=== PATIENT | male | born 1980 | race Caucasian/White ===

== ENCOUNTER 2018-02-03 17:35 | Emergency (ER) | payer OTHER ==
[~2018-02-03 17:35] MED LIST: ALPR-429 PO; AMOX500T10 PO; ATOR10TA24 PO; CLAR-1 PO; MONT10TA PO; OMEP-125 PO; OMEP10SU PO; TOBOD OS
--- NOTE | 2018-02-03 17:38 | ER Report ---
History and Physical Time Seen By MD: 17:38 (MONA HOPPER MD) Time Seen By MD: 18:35 (KAREN GARRETT DO) HPI/ROS CHIEF COMPLAINT: Allergic reaction HISTORY OF PRESENT ILLNESS: Patient is a 37-year-old male here with difficulty breathing, difficulty swallowing, sensation is throat is closing. Symptoms started approximately 30 minutes prior to arrival after the patient was administered his maintenance allergy desensitization medications. Patient reports that he is allergic to environmental allergies and has been taking a course of injections for desensitization. Patient did use his epinephrine pen and remains hemodynamically stable at time of evaluation. Patient denies fevers , chills, recent illness, chest pain, abdominal pain, nausea, vomiting. REVIEW OF SYSTEMS: Constitutional: No fever, no chills. Eyes: + Injection ENT: Mild esophageal foreign body sensation Cardiovascular: No chest pain, no palpitations. Respiratory: No cough, + shortness of breath. Gastrointestinal: No abdominal pain, no vomiting. Genitourinary: No hematuria. Musculoskeletal: No back pain. Skin: No rashes. Neurological: No headache. (KAREN GARRETT DO) Allergies: Coded Allergies: No Known Drug Allergies (Verified , 11/30/08) Home Meds Active Scripts Prednisone (PREDNISONE) 20 Mg Tablet, 40 MG PO QDAY for 3 Days, #6 TAB Prov:KAREN GARRETT DO 02/03/18 Omeprazole (OMEPRAZOLE) 20 Mg Capsule.dr, 1 CAP PO BID, #60 CAP Prov:CARISSA COATES V DO 05/06/17 Reported Medications Epinephrine (EPINEPHRINE) 0.3 Mg/0.3 Ml Pen.injctr, 0.3 MG IM PRN 02/03/18 Alprazolam (XANAX) 0.5 Mg Tablet, 2 TAB PO HS Y for SLEEP, TAB 05/30/17 Atorvastatin Calcium (LIPITOR) 10 Mg Tablet, 1 TAB PO QDAY, TAB 05/30/17 Discontinued Reported Medications Montelukast Sodium (SINGULAIR) 10 Mg Tablet, 1 TAB PO QDAY, TAB 05/30/17 Hx Smoking: No Hx Substance Use Disorder: No Hx Alcohol Use: Yes (MONA HOPPER MD) Constitutional Vital Sign - Last 24 Hours 02/03/18 02/03/18 02/03/18 02/03/18 17:35 17:39 17:45 17:45 Temp 98.3 Pulse 100 99 Resp 20 16 B/P (MAP) 164/96 164/96 (118) Pulse Ox 92 90 O2 Delivery Room Air Room Air 02/03/18 02/03/18 02/03/18 02/03/18 17:50 18:00 18:02 18:05 Pulse 92 95 96 Resp 14 B/P (MAP) 148/87 (107) Pulse Ox 98 89 02/03/18 02/03/18 02/03/18 02/03/18 18:20 18:25 18:30 18:40 Pulse 100 96 93 B/P (MAP) 136/82 (100) Pulse Ox 89 88 88 02/03/18 02/03/18 18:55 19:00 Pulse 95 B/P (MAP) 130/82 (98) Pulse Ox 88 Intake and Output 02/03/18 02/03/18 02/04/18 15:00 23:00 07:00 Intake Total 50 ml Balance 50 ml (GARRETTKAREN S DO) Physical Exam General Appearance: The patient is alert, has no immediate need for airway protection and no signs of toxicity. No acute distress Eyes: Pupils equal and round no pallor or injection. ENT, Mouth: Mucous membranes are moist. Respiratory: There are no retractions, lungs are clear to auscultation. Cardiovascular: Regular rate and rhythm. Gastrointestinal: Abdomen is soft and non tender, no masses, bowel sounds normal. Neurological: No focal neurological deficits. Skin: Warm and dry, mild erythema of the face and neck Musculoskeletal: Neck is supple non tender. Extremities are nontender, nonswollen and have full range of motion. DIFFERENTIAL DIAGNOSIS: After history and physical exam differential diagnosis was considered for medication reaction, allergic reaction, anaphylaxis (GARRETT,KAREN S DO) Medical Decision Making ED Course/Re-evaluation ED Course Patient is a 37-year-old male here with complaints of shortness breath, difficult swallowing after receiving allergy desensitization shots approximately half hour prior to arrival. Patient was administered his epinephrine pen and was given Benadryl, Pepcid, nebulizer treatment, methylprednisolone with significant relief of symptoms. Patient was well- appearing at time of evaluation by myself. I educated the patient on concerns for recurrent allergic reaction. Patient does have another epinephrine pen available in case he experiences rebound symptoms. Patient was placed on 3 subsequent days of prednisone since patient is likely to have continued exposure to the injection for an unknown period of time. Patient voiced understanding of plan. Decision to Disposition Date: Feb 03, 2018 Decision to Disposition Time: 19:04 (KAREN GARRETT DO) Depart Departure Latest Vital Signs Vital Signs Date Time Temp Pulse Resp B/P (MAP) Pulse Ox O2 Delivery O2 Flow Rate FiO2 02/03/18 19:00 130/82 (98) 02/03/18 18:55 95 88 02/03/18 18:02 14 02/03/18 17:45 Room Air 02/03/18 17:35 98.3 (KAREN GARRETT DO) Impression: Primary Impression: Allergic reaction Condition: Improved Disposition: HOME OR SELF-CARE Referrals: ALEXA HALEY (PCP) New Scripts Prednisone (PREDNISONE) 20 Mg Tablet 40 MG PO QDAY for 3 Days, #6 TAB Prov: KAREN GARRETT DO 02/03/18 Patient Instructions: General Allergic Reaction (ED), Prednisone (By mouth) Additional Instructions: Please continue your medications as prescribed. Please take two tablets of prednisone for 3 days. Please follow up promptly with your family doctor Please make your doctor aware of your reaction to the allergy injections as your reaction may become worse and subsequent injections. Please return promptly if he develop shortness of breath, difficulty swallowing, rashes, swelling or chest pain. MONA HOPPER MD Feb 03, 2018 17:38 KAREN GARRETT DO Feb 03, 2018 18:43
[2018-02-03] MEDS ORDERED: EPIN0.3P3 IM (17:45)
[2018-02-03] MEDS ORDERED: ALBUTEROL 2.5 MG/3 ML NEB ONE (17:46)
[2018-02-03] MEDS ORDERED: diphenhydrAMINE 50 MG/ML VIAL IVP ONE (17:50)
[2018-02-03] MEDS ORDERED: methylPREDNIS SUCC 125 MG/2ML IVP ONE (17:50)
[2018-02-03] MEDS ORDERED: FAMOTIDINE(*) 20MG/50ML PREMIX 50 ML IVPB ONE (17:50)
[2018-02-03 19:00] VITALS: BP 130/82
[2018-02-03] MEDS ORDERED: PRED20TA6 PO (19:03)
== END 2018-02-03 19:13 | disposition home or self-care (01) ==
LOC: ER 18:07
DX: T50.995A Adverse effect of other drugs, medicaments and biological substances, initial encounter (principal)
CPT/HCPCS: 94640; 96365; 96375; 99284; J1200; J2930; J3490; J7613